=== PATIENT | female | born 1975 | race Caucasian/White ===

== ENCOUNTER 2021-01-29 11:37 | Emergency (ER) | payer BC ==
[~2021-01-29] VITALS: Ht 167.6 cm; Wt 95.5 kg
[2021-01-29 11:55] VITALS: BP 141/88
[2021-01-29] MEDS ORDERED: IBUPROFEN 200 MG TABLET. PO ONE (12:30)
[2021-01-29] MEDS ORDERED: BACITRACIN TOPICAL OINT PACKET. TP ONE (12:30)
[2021-01-29] MEDS ORDERED: HYDROcodone/APAP 5/325MG 1 TAB TABLET PO ONE (12:30)
--- NOTE | 2021-01-29 12:31 | PHYS DOC ---
Past Medical History Past Surgical History: Cholecystectomy, Other Additional Past Surgical Histo: JAW, DENTAL INPLANTS (MARICHUY PRESTON APRN) Smoking Status: Current Some Day Smoker Alcohol Use: Occasionally (MARICHUY PRESTON APRN) General Adult EDM: Chief Complaint: FACE PROBLEM HPI: HPI: Patient is a 46-year-old female presents emergency department concerning nose pain. Patient states she was at a local amusement park and was riding a water ride when the right jerked in a way that made her head go forward against the back of another person's head striking her nose against there skull. Patient denies loss of consciousness however stated her nose did start bleeding immediat arnoldo, patient reports she held pressure and the bleeding resolved shortly after applying pressure. Patient reports a 7 out of 10 nasal pain. States she can breathe through both sides of her nose although she cannot tell they are clogged some. Patient denies loss of taste or loss of smell, denies numbness or tingling to her face, denies other physical complaints or physical concerns, reports her last tetanus immunization was less than 5 years ago. (MARICHUY PRESTON SKIN CARE THERAPIST) Review of Systems: Review of Systems: 14 body systems of review of systems have been reviewed. See HPI for pertinent positives and negative responses, otherwise all other systems are negative, nonpertinent or noncontributory. Constitutional: Negative except as outlined in HPI above. Skin: Negative except as outlined in HPI above. Eyes: Negative except as outlined in HPI above. HENT: Negative except as outlined in HPI above. Respiratory: Negative except as outlined in HPI above. Cardiovascular: Negative except as outlined in HPI above. GI: Negative except as outlined in HPI above. : Negative except as outlined in HPI above. Musculoskeletal: Negative except as outlined in HPI above. Integument: Negative except as outlined in HPI above. Neurologic: Negative except as outlined in HPI above. Endocrine: Negative except as outlined in HPI above. Lymphatic: Negative except as outlined in HPI above. Psychiatric: Negative except as outlined in HPI above. (MARICHUY PRESTON APRN) Heart Score: C/O Chest Pain: No Risk Factors: Risk Factors: DM, Current or recent (<one month) smoker, HTN, HLP, family history of CAD, obesity. Risk Scores: Score 0 - 3: 2.5% MACE over next 6 weeks - Discharge Home Score 4 - 6: 20.3% MACE over next 6 weeks - Admit for Clinical Observation Score 7 - 10: 72.7% MACE over next 6 weeks - Early Invasive Strategies (MARICHUY PRESTON APRN) Allergies: Allergies: Allergies Coded Allergies Type Severity Reaction Last Updated Verified No Known Drug Allergies 01/29/21 No (MARICHUY PRESTON APRN) Physical Exam: PE: Constitutional: Well developed, well nourished, no acute distress, non-toxic appearance. 46-year-old female in no apparent distress. HENT: Normocephalic, atraumatic. Dried blood in bilateral nasal turbinate, no postnasal drip, there is a small less than 1 mm abrasion to the bridge of nose, no bruising or contusion appreciated, no crepitus appreciated with palpation over nasal and facial bony prominences, no raccoon eyes, no rasheed sign, bilateral TMs intact. There is no malocclusion. Eyes: Conjunctiva normal, no discharge. Neck: Normal range of motion, no stridor. No C-spine spinal tenderness, no nuchal rigidity. Cardiovascular: No cyanosis appreciated, distal cap refill less than 2 seconds. Lungs & Thorax: Patient is in no respiratory distress, no audible adventitious lung sounds appreciated. Abdomen: Nontender, no abnormalities noted. Skin: Warm, dry, no erythema, no rash. Back: No tenderness, no deformities. Extremities: No tenderness, no cyanosis, no clubbing, ROM intact, no edema. Neurologic: Alert and oriented X 3, normal motor function, normal sensory function, no focal deficits noted. Psychologic: Affect normal, judgement normal, mood normal. (MARICHUY PRESTON APRN) Current Patient Data: Vital Signs: Vital Signs Date Time Temp Pulse Resp B/P (MAP) Pulse Ox O2 Delivery O2 Flow Rate FiO2 01/29/21 11:55 98.0 94 20 141/88 (105) 98 Room Air 98.0 (MARICHUY PRESTON APRN) EKG: EKG: [] (MARICHUY PRESTON APRN) Radiology/Procedures: Radiology/Procedures: [] (MARICHUY PRESTON APRN) Course & Med Decision Making: Course & Med Decision Making Pertinent Labs and Imaging studies reviewed. (See chart for details) 46-year-old female, vital signs reviewed, presents emerged department concerning bumping her nose against the back of somebody's head while at amusement park ride approximately 1 hour prior to arrival emergency department today. Physical examination is consistent with patient's explanation of events, patient's tetanus immunization is up-to-date prior to arrival to the ER, Adacel/Tdap not indicated for today's visit, will order ice pack, p.o. pain medication, x-ray imaging not indicated his there is no deviation or crepitus or bruising or swelling to the nose appreciated, patient can breathe through nose without difficulty, will diagnosed with nasal contusion, strict follow-up with primary care this week for ongoing problems, patient is from [facility], discussed following up with ENT if she experiences ongoing or notices breathing problems. Patient is amenable to and gave verbal understanding of ED discharge planning. Discussed with the patient all findings and diagnostic testing as well as the need to follow-up with their primary care provider for further evaluation and treatment or return to the ED if any new or worsening symptoms. Strict return precautions were also discussed at length, the patient voiced understanding and agreement with the discharge planning. The patient was nontoxic in appearance, in no apparent distress, and hemodynamically stable at the time of disposition. (MARICHUY PRESTON APRN) Course & Med Decision Making I have participated in the care of this patient and I have reviewed and agree with all pertinent clinical information above including history, exam, and recommendations. Arik Lacey DO (ARIK LACEY DO) Clary Disclaimer: Clary Disclaimer: This electronic medical record was generated, in whole or in part, using a voice recognition dictation system. (MARICHUY PRESTON APRN) Departure Departure Impression: Primary Impression: Contusion, nose Qualified Codes: S00.33XA - Contusion of nose, initial encounter Additional Impression: Nasal abrasion Qualified Codes: S00.31XA - Abrasion of nose, initial encounter Disposition: HOME / SELF CARE / HOMELESS Condition: GOOD Patient Instructions: Contusion Additional Instructions: You were seen today in the emergency department after bumping your nose against another person while riding a amusement park ride approximately 1 hour prior to arrival here in the emergency department. Your physical examination is consistent with a nose contusion. You were treated today in the emergency department with ibuprofen and a hydrocodone/acetaminophen tablet for acute pain. As we discussed, continue to use ice packs 30 minutes on a 30 minutes off while awake and keep your nasal abrasion clean and dry and apply antibiotic ointment until healed. You can continue to use [id number] ibuprofen for discomfort. As we discussed, please follow-up with your primary care physician soon for reevaluation of your nasal contusion. Please return to the emergency department for worsening symptoms or other concerns. Thank you for visiting our Emergency Department. It was a pleasure taking care of you today in the emergency department and we appreciate you trusting us with your care. If any additional problems come up don't hesitate to return to visit us. Please follow up with your primary care provider so they can plan additional care if needed and know about the problem that you had. If symptoms worsen come back to the Emergency Department. Any concerning symptoms that start such as chest pain, shortness of air, weakness or numbness on one side of the body, running high fevers or any other concerning symptoms return to the ER. MARICHUY PRESTON APRN Jan 29, 2021 12:31 ARIK LACEY DO Jan 29, 2021 17:10
== END 2021-01-29 12:50 | disposition home or self-care (01) ==
LOC: ER 11:37
DX: S00.33XA Contusion of nose, initial encounter (principal); F17.200 Nicotine dependence, unspecified, uncomplicated; W51.XXXA Accidental striking against or bumped into by another person, initial encounter; Y93.89 Activity, other specified; Y92.89 Other specified places as the place of occurrence of the external cause; Y99.8 Other external cause status
CPT/HCPCS: 99284